=== PATIENT | male | born 1975 | race Caucasian/White ===

== ENCOUNTER 2018-04-13 17:39 | Inpatient (IN) | payer MEDICAID, SELFPAY ==
[2018-04-13] VITALS (47 sets, daily range): BP systolic 117–160; BP diastolic 74–94; PULSE 63–98; RESP 0–39; TEMP 36.8–37.2; O2SAT 89–100
--- NOTE | 2018-04-13 17:52 | DI.CT_ITS ---
SYMPTOM/DIAGNOSIS: ABD PAIN, DYSPNEA, CHEST PAIN, VOMITING CHEST, ABDOMEN AND PELVIC CT: Routine examination following contrast was performed. ABDOMEN AND PELVIS: There are no priors. The liver is normal in size. There are tiny hypodense lesions seen within the liver. They are too small for further characterization but likely reflect small cysts. No suspicious hepatic masses are seen. The portal, superior mesenteric and splenic veins are patent. The gallbladder is negative. No biliary ductal dilatation is seen. The pancreas, spleen and adrenal glands are unremarkable. The kidneys show normal and symmetric enhancement. There are tiny hypodensities seen in the kidneys bilaterally. They are too small for further characterization but likely reflect small cysts. No evidence of obstruction is seen. The urinary bladder is intact. The reproductive organs are unremarkable. The bowel shows no evidence of obstruction or inflammation. There is a normal appendix present. The abdominal aorta is of normal caliber. No significant abdominal or pelvic adenopathy, ascites, or pneumoperitoneum is present. No acute osseous abnormality is identified. IMPRESSION: No evidence of an acute abdomen. CHEST CT: The thoracic aorta is of normal caliber. No aneurysmal dilatation is seen. Heart size is within normal limits. No significant pericardial effusion is seen. Mildly enlarged lymph nodes are seen in the mediastinum but no significant thoracic adenopathy is appreciated. No pleural effusion or pneumothorax is identified. There is soft tissue seen in the anterior mediastinum likely reflect residual thymic tissue. The lungs show no focal consolidating infiltrates. Tracheobronchial tree is unremarkable. Dependent atelectatic changes are seen in the lungs. No acute osseous abnormality is identified. IMPRESSION: No evidence of an acute pulmonary process.
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
[2018-04-13] MEDS: Normal Saline 1,000 ML 1000 ML IV (17:56)
[2018-04-13] MEDS: Ondansetron O.D.T. 4 MG TABEF PO (18:00)
[2018-04-13] MEDS: Ketorolac 30 MG/ML VIAL IVP (18:01)
[2018-04-13 18:13] LABS: Abs Immature Grans 0.01 k/cumm (0.0-0.09); Absolute Basophil Count 0.02 k/cumm (0.0-0.2); Absolute Lymphocyte Count 0.57 k/cumm (1.2-3.4); Absolute Monocyte Count 0.66 k/cumm (0.11-0.7); Absolute Neutrophil Count 4.59 k/cumm (1.2-6.7); Basophils % 0.3; HCT 43.6 % (40.0-50.0); HGB 15.6 g/dL (13.5-17.5); Immature Grans % 0.2; Lymphocytes % 9.7; Mean Corp. HGB Concentration 35.8 g/dL (32.0-36.0); Mean Corpuscular Hemoglobin 32.9 pg (27.0-33.0); Mean Platelet Volume 10.5 fL (8.0-11.0); Monocytes % 11.3; Neutrophils % 78.5; Platelet Count 164 x1000/uL (130-400); RBC 4.74 m/cumm (4.50-6.00); RBC Distribution Width 12.4 % (11.8-14.1); White Blood Cell Count 5.85 k/cumm (4.4-10.8)
[2018-04-13 18:16] LABS: Lactate 2.5 mmol/L (0.6-1.4)
[2018-04-13 18:31] LABS: ALT 29 U/L (12-78); AST 24 U/L (15-37); Alkaline Phosphatase 77 U/L (46-116); Anion Gap 13.8 mmol/L (3-11); BUN 19 mg/dL (7-18); Bilirubin, Total 0.6 mg/dL (0.2-1.0); CO2 26.2 mmol/L (21.0-32.0); CREATININE 0.93 mg/dL (0.70-1.30); Calcium 9.3 mg/dL (8.5-10.1); Chloride 99 mmol/L (98-107); Glucose 93 mg/dL (70-100); Magnesium 1.7 mg/dL (1.8-2.4); Potassium 3.6 mmol/L (3.5-5.1); Sodium 139 mmol/L (136-145); Total Protein 7.8 g/dL (6.4-8.2)
[2018-04-13 18:40] LABS: Troponin I < 0.02 ng/mL (0.00-0.06)
[2018-04-13 18:47] LABS: Bilirubin Negative (Negative); Blood Negative (Negative); Clarity Clear; Glucose Negative (Negative); Ketones 40 mg/dL (Negative); Leukocyte Esterase Negative (Negative); Nitrite Negative (Negative); Urobilinogen 0.2 EU/dL (Up TO 0.2)
[2018-04-13 18:52] LABS: Creatine Kinase 75 U/L (39-308); PHOSPHORUS 1.6 mg/dL (2.6-4.7); Uric Acid 7.6 mg/dL (3.5-7.2)
[2018-04-13] MEDS: Omnipaque 350 MG/ML 100 ML BTL IJ (18:54)
[2018-04-13] MEDS: ACETAMINOPHEN 1,000 MG/100 ML BTL 400 MG IVPB (19:01)
[2018-04-13 19:06] LABS: PTT Activated 26.5 sec (21.0-31.4); Prothrombin Time 9.9 sec (9.3-11.0)
[2018-04-13] MEDS: Lactated Ringers 1,000 ML 1000 ML IV (19:40)
--- NOTE | 2018-04-13 19:42 | DI.VRAD_ITS ---
EXAM: CT Chest With Contrast EXAM DATE/TIME: 04/13/2018 5:55 PM CLINICAL HISTORY: 42 years old, male; Signs and symptoms; Other: Chest pain; Dyspnea; Other: Abdonimal pain TECHNIQUE: Axial computed tomography images of the chest with intravenous contrast. All CT scans at this facility use at least one of these dose optimization techniques: automated exposure control; mA and/or kV adjustment per patient size (includes targeted exams where dose is matched to clinical indication); or iterative reconstruction. Coronal and sagittal reformatted images were created and reviewed. CONTRAST: 100 ml of omnipaque 350 administered intravenously. COMPARISON: No relevant prior studies available. FINDINGS: Thyroid: Thyroid gland partially excluded from view but unremarkable through its visualized portion. Lungs: No pulmonary consolidation. Pleural space: No pleural effusion. No pneumothorax. Heart: Normal sized heart. Mediastinum: Small amount of residual thymic tissue in the anterior mediastinum. Pulmonary arteries: Exam not tailored to evaluate the pulmonary arterial vasculature. Within the limits of the exam, no large central pulmonary embolism demonstrated in the pulmonary trunk or main pulmonary arteries. Aorta: No thoracic aortic aneurysm or dissection. Lymph nodes: Scattered shotty mediastinal lymph nodes, nonspecific. Bones/joints: No acute fracture seen among the bones of the chest. Soft tissues: No soft tissue mass or fluid collection seen in the chest wall. IMPRESSION: No active disease is seen in the chest. EXAM: CT Abdomen and Pelvis With Contrast EXAM DATE/TIME: 04/13/2018 5:55 PM CLINICAL HISTORY: 42 years old, male; Signs and symptoms; Other: Chest pain; Dyspnea; Other: Abdonimal pain TECHNIQUE: Axial computed tomography images of the abdomen and pelvis with intravenous contrast. All CT scans at this facility use at least one of these dose optimization techniques: automated exposure control; mA and/or kV adjustment per patient size (includes targeted exams where dose is matched to clinical indication); or iterative reconstruction. Coronal and sagittal reformatted images were created and reviewed. CONTRAST: 100 ml of omnipaque 350 administered intravenously. COMPARISON: No relevant prior studies available. FINDINGS: Lower thorax: As above. ABDOMEN: Liver: Small indeterminate hypoattenuating hepatic lesions, incompletely characterized but most likely small cysts and/or hemangiomas. Gallbladder and bile ducts: Gallbladder moderately distended. No calcified gallstones. No biliary dilatation. Pancreas: Normal appearing pancreas. Spleen: Normal appearing spleen. Adrenals: Normal appearing adrenal glands. Kidneys and ureters: Small indeterminate hypoattenuating renal lesions, incompletely characterized but statistically most likely small cysts. Otherwise normal appearing kidneys. No hydronephrosis. No obstructing ureteral stones. Stomach and bowel: No oral contrast. Stomach partially decompressed. No small bowel dilatation to suggest obstruction. Normal-appearing colon. No evidence of diverticulitis or colitis. Appendix: Normal appendix. PELVIS: Bladder: Normal appearing urinary bladder. Reproductive: Normal-appearing prostate gland and seminal vesicles. ABDOMEN and PELVIS: Intraperitoneal space: No gross ascites or free air. Bones/joints: No acute fracture seen among the bones of the abdomen or pelvis. Soft tissues: Small fat-containing right inguinal region hernia. Small fat containing umbilical hernia. Vasculature: Normal caliber abdominal aorta. Lymph nodes: Shotty retroperitoneal lymph nodes, nonspecific. IMPRESSION: The cause of abdominal pain is not identified. Dictated and Authenticated by: Rodrigo Daley MD. Ordering:BINTA Dixon MD
[2018-04-13 21:22] LABS: Anion Gap 10.3 mmol/L (3-11); BUN 18 mg/dL (7-18); CO2 27.7 mmol/L (21.0-32.0); CREATININE 0.88 mg/dL (0.70-1.30); Calcium 8.4 mg/dL (8.5-10.1); Chloride 102 mmol/L (98-107); Glucose 85 mg/dL (70-100); Potassium 3.2 mmol/L (3.5-5.1); Sodium 140 mmol/L (136-145)
[2018-04-13] MEDS: HYDROmorphone 2 MG/ML VIAL IVP (22:05)
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
--- NOTE | 2018-04-13 22:10 | NUR.NOTE ---
surgeon evaulated patient, patient medicated per MD order Nursing Note:
--- NOTE | 2018-04-13 22:23 | NUR.NOTE ---
report given to Radha. Nursing Note:
--- NOTE | 2018-04-13 22:40 | NUR.NOTE ---
Nursing Note: Patient arrived to unit in stable condition, he is awake, alert and oriented x3, reporting mild lower abdominal pain which was treated in the ER at 2200 (see MAR). Otherwise, patient is comfortable, no needs voiced at this time. Guard at the bedside.
[2018-04-13] MEDS: Normal Saline 1,000 ML 75 ML IV (23:28)
--- NOTE | 2018-04-14 00:16 | NUR.NOTE ---
Nursing Note: Patient concerned he has not received his regular home meds this evening, confirmed with CC that patients home meds were verified in ER. CC will discuss with attending physician.
[2018-04-14] MEDS: HYDROmorphone 2 MG/ML VIAL IVP ×3 (04:18→19:01)
[2018-04-14 06:53] LABS: Lactate-non-spesis 0.7 mmol/l (0.6-1.4)
[2018-04-14 07:03] LABS: Absolute Basophil Count 0.01 k/cumm (0.0-0.2); Absolute Eosinophil Count 0.02 k/cumm (0.0-0.7); Absolute Lymphocyte Count 0.89 k/cumm (1.2-3.4); Absolute Monocyte Count 0.75 k/cumm (0.11-0.7); Absolute Neutrophil Count 2.64 k/cumm (1.2-6.7); Basophils % 0.2; Eosinophils % 0.5; Lymphocytes % 20.6; Mean Corpuscular Hemoglobin 32.7 pg (27.0-33.0); Mean Corpuscular Volume 93.5 fL (80-95); Mean Platelet Volume 10.6 fL (8.0-11.0); Monocytes % 17.4; Neutrophils % 61.3; Platelet Count 138 x1000/uL (130-400); RBC 4.28 m/cumm (4.50-6.00); RBC Distribution Width 12.3 % (11.8-14.1); White Blood Cell Count 4.31 k/cumm (4.4-10.8)
[2018-04-14 07:06] LABS: Anion Gap 9.8 mmol/L (3-11); BUN 17 mg/dL (7-18); CO2 28.2 mmol/L (21.0-32.0); Calcium 8.4 mg/dL (8.5-10.1); Chloride 104 mmol/L (98-107); Glucose 76 mg/dL (70-100); Potassium 3.3 mmol/L (3.5-5.1); Sodium 142 mmol/L (136-145)
[2018-04-14 07:35] VITALS: BP 141/79; PULSE 82; RESP 16; TEMP 37; O2SAT 97
[2018-04-14 08:25] LABS: C-Reactive Protein 3.58 mg/dL (0.0-0.3)
[2018-04-14 09:04] LABS: ESR 13 MM/HR (0-15)
[2018-04-14 11:45] VITALS: BP 129/76; PULSE 78; RESP 18; TEMP 36.8; O2SAT 98
--- NOTE | 2018-04-14 12:16 | PHARADMIT ---
Admission Pharmacy Clinical Review Smal Bowel thickening, acute abdominal pain Code Status Full Code Current Weight Wgt-88.5 kg Renally Cleared and Narrow Therapeutic Index Meds CrCl~ 137 mL/min Meds-OK QTc Value / Action Taken QTc-458 na BP Control, Fever BP- 141/79 Tmax-37C Electrolytes reviewed Na- 142 K+3.3 Mag-1.7 Phos-1.6 DVT Prophylaxis none ? surgery Opiate Usage / Scheduled Bowel Regimen Ordered Yes, No NPO Plt/SCr for Heparin / Enoxaparin Plts-138 SCr- 0.80 INR for Warfarin inr-1.0 H/H stable, WBC/Bands H&H- 14.0/40.0 WBC- 4.31 Antibiotic appropriateness none Cultures and Sensitivities none Surgical ABX d/c within 24 hr na DM control / Insulin Dosing BG-76 Heart Failure (Check EF%) (JEFF's, B-Block, Diuretics) None IV to PO Switch No Home Meds Reviewed Yes Home Meds Not Ordered Subutrex,HCTZ, Ibuprofen, Lisinopril, Trazodone, Eucerin Comments RCRP-C-3.58
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
[2018-04-14] MEDS: Normal Saline 1,000 ML 75 ML IV (12:56)
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
[2018-04-14] MEDS: ACETAMINOPHEN 1,000 MG/100 ML BTL 400 MG IVPB (13:47)
[2018-04-14 16:19] VITALS: BP 132/76; PULSE 70; RESP 18; TEMP 36.5; O2SAT 97
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
[2018-04-14] MEDS: Normal Saline 1,000 ML 125 ML IV (22:11)
[2018-04-14 23:47] VITALS: BP 134/86; PULSE 72; RESP 17; TEMP 37.6; O2SAT 96
[2018-04-15] MEDS: HYDROmorphone 2 MG/ML VIAL IVP ×2 (00:09→06:39)
[2018-04-15] MEDS: Normal Saline Flush 10 ML SYR (00:09)
[2018-04-15] MEDS: Normal Saline 1,000 ML 125 ML IV (06:38)
[2018-04-15] MEDS: Breeza Beverage 473 ML BTL PO (07:17)
[2018-04-15] MEDS: Omnipaque 350 MG/ML 100 ML BTL IJ (07:18)
[2018-04-15] MEDS: Omnipaque 350 MG/ML 50 ML BTL IJ (07:18)
--- NOTE | 2018-04-15 07:18 | DI.CT_ITS ---
SYMPTOM/DIAGNOSIS: RLQ PAIN, ONGOING ABDOMEN AND PELVIC CT: CT scan of the abdomen and pelvis was performed following the uneventful administration of intravenous contrast material. Comparison is made with 04/13/18. Dependent atelectatic changes are seen in the lung bases. The liver is normal in size. No suspicious hepatic masses are seen. There is focal fatty infiltration adjacent to the falciform ligament. There are again seen a few tiny hypodensities within the liver. They are too small for further characterization but likely reflect cysts. The hepatic, portal and superior mesenteric and splenic veins are patent. The gallbladder is negative. No biliary ductal dilatation is seen. The spleen, pancreas and adrenal glands are unremarkable. The kidneys show normal and symmetric enhancement. There is a right renal cyst. There are also bilateral tiny hypodensities within the kidneys. They are too small for further characterization but likely reflect cysts. The urinary bladder is intact. The reproductive organs are unremarkable. The bowel shows no evidence of obstruction or inflammation. There is a normal appendix present. The aorta is of normal caliber. No aneurysmal dilatation is seen. No significant abdominal or pelvic adenopathy or pneumoperitoneum is seen. There is a trace amount of free fluid in the pelvis which is nonspecific. No acute osseous abnormality is identified. IMPRESSION: Nonspecific trace amount of free intraperitoneal fluid.
[2018-04-15 07:26] LABS: Absolute Basophil Count 0.01 k/cumm (0.0-0.2); Absolute Eosinophil Count 0.02 k/cumm (0.0-0.7); Absolute Lymphocyte Count 1.02 k/cumm (1.2-3.4); Absolute Monocyte Count 0.56 k/cumm (0.11-0.7); Absolute Neutrophil Count 2.52 k/cumm (1.2-6.7); Basophils % 0.2; Eosinophils % 0.5; HCT 40.6 % (40.0-50.0); HGB 14.4 g/dL (13.5-17.5); Lymphocytes % 24.7; Mean Corp. HGB Concentration 35.5 g/dL (32.0-36.0); Mean Corpuscular Hemoglobin 32.4 pg (27.0-33.0); Mean Corpuscular Volume 91.4 fL (80-95); Mean Platelet Volume 10.5 fL (8.0-11.0); Monocytes % 13.6; Platelet Count 144 x1000/uL (130-400); RBC 4.44 m/cumm (4.50-6.00); White Blood Cell Count 4.13 k/cumm (4.4-10.8)
[2018-04-15 07:36] VITALS: BP 150/97; PULSE 76; RESP 19; TEMP 37; O2SAT 95
[2018-04-15 08:02] LABS: ESR 18 MM/HR (0-15)
--- NOTE | 2018-04-15 08:08 | DI.VRAD_ITS ---
EXAM: CT Abdomen and Pelvis With Contrast EXAM DATE/TIME: 04/15/2018 12:01 AM CLINICAL HISTORY: 42 years old, male; Signs and symptoms; Other: Rlq pain, ongoing, no source TECHNIQUE: Axial computed tomography images of the abdomen and pelvis with intravenous contrast. All CT scans at this facility use at least one of these dose optimization techniques: automated exposure control; mA and/or kV adjustment per patient size (includes targeted exams where dose is matched to clinical indication); or iterative reconstruction. Coronal and sagittal reformatted images were created and reviewed. CONTRAST: 100 ml of Omnipaque 350 administered intravenously. COMPARISON: CT CHEST/ABD/PEL W 04/13/2018 6:45 PM FINDINGS: Lower thorax: Minimal dependent changes within the lung bases. ABDOMEN: Liver: Tiny indeterminate low-density hepatic lesions, likely cysts. Focal fatty infiltration within the left hepatic lobe adjacent to the fissure for the ligamentum teres. Gallbladder and bile ducts: Unremarkable. No calcified stones. No ductal dilation. Pancreas: Unremarkable. No ductal dilation. Spleen: Unremarkable. No splenomegaly. Adrenals: Normal. No mass. Kidneys and ureters: Indeterminate low-density lesions scattered throughout both kidneys, likely cysts. No renal stone or hydronephrosis. Stomach and bowel: Unremarkable. No obstruction. No mucosal thickening. Appendix: No evidence of appendicitis. PELVIS: Bladder: Unremarkable as visualized. Reproductive: Unremarkable as visualized. ABDOMEN and PELVIS: Intraperitoneal space: Trace intraperitoneal fluid within the lower pelvis (axial images 64 through 70). Bones/joints: No acute fracture. Soft tissues: Tiny umbilical hernia containing fat. Vasculature: Unremarkable. No abdominal aortic aneurysm. Lymph nodes: Tiny nonspecific retroperitoneal lymph nodes. IMPRESSION: 1. Trace intraperitoneal fluid in the lower pelvis, nonspecific. 2. Probable tiny hepatic and renal cysts. Dictated and Authenticated by: Marco Rodriguez MD. Ordering:AMANDA Ospina MD
[2018-04-15] MEDS: Lisinopril 20 MG TAB 30 MG PO (12:02)
[2018-04-15] MEDS: Ibuprofen 600 MG TAB PO (12:04)
[2018-04-15] MEDS: Magnesium Citrate 300 ML BTL PO (12:04)
[2018-04-15] MEDS: Hydrochlorothiazide 25 MG TAB 50 MG PO (12:04)
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
[2018-04-15] MEDS: Milk of Magnesia 30 ML CUP PO (15:00)
[2018-04-15] MEDS: ACETAMINOPHEN 1,000 MG/100 ML BTL 400 MG IVPB (15:06)
--- NOTE | 2018-04-15 15:23 | PDOC.CMPRO ---
Care Management Progress Note S/O: Sitting up in bed watching TV. Had just received Tylenol for a headache. Stated other thanthat he is feeling much better and was able to tolerate a regular meal today. A: 42 y.o. male admitted for acute abdominal pain. Remains acute today. [facility] P:When medically cleared for discharge will return to the correctional. Transport will be arranged by corrections in one of their vehicles.
[2018-04-15 15:38] VITALS: BP 142/80; PULSE 70; RESP 18; TEMP 36; O2SAT 97
--- NOTE | 2018-04-15 15:51 | CMPROGNOTE_ITS ---
Care Management Progress Note S/O: Sitting up in bed watching TV. Had just received Tylenol for a headache. Stated other thanthat he is feeling much better and was able to tolerate a regular meal today. A: 42 y.o. male admitted for acute abdominal pain. Remains acute today. [facility] P:When medically cleared for discharge will return to the correctional. Transport will be arranged by corrections in one of their vehicles.
[2018-04-15 20:25] VITALS: BP 153/71; PULSE 70; RESP 18; TEMP 36.5; O2SAT 99
[2018-04-15] MEDS: traZODone 50 MG TAB 150 MG PO (21:57)
[2018-04-16 00:20] VITALS: BP 133/87; PULSE 75; RESP 16; TEMP 36; O2SAT 95
[2018-04-16] MEDS: Hydrochlorothiazide 25 MG TAB 50 MG PO (07:51)
[2018-04-16] MEDS: Lisinopril 20 MG TAB 30 MG PO (07:51)
[2018-04-16 08:10] VITALS: BP 133/91; PULSE 67; RESP 18; TEMP 36.1; O2SAT 96
[2018-04-16] MEDS: Milk of Magnesia 30 ML CUP PO (08:58)
--- NOTE | 2018-04-16 11:31 | W.PM.PROGNOT ---
Date of Service Date of service: 04/16/18 Time of Service: 11:32 Assessment and Plan (1) Constipation due to pain medication: Current visit: Yes Status: Acute -no BM yet. pt feels better- min pain. + headache today. tolerating po's. -will try Golyte (PEG soln) -fioricet for headache -d/c after BM (2) Headache: Current visit: Yes Status: Acute Subjective Patient reports: pain is less, voiding w/o difficulty, no bowel movement, nausea, vomiting and afebrile Interval history since last seen: no bm yet [id number] mom and mag citrate . pt had some n/v last pm. + flatus and some liquid stool. no bleeding. no n/v today adn jamila po's. feels like he needs to have bm. Exam Const General: healthy appearing and comfortable Nutritional Appearance: average body habitus Orientation: alert, awake and oriented x3 GI Inspection: normal to inspection, distended, scar and other Palpation: soft Auscultation: normal bowel sounds Objective Objective Clinical Data: Vital Signs Temperature 36.1 C L 04/16/18 08:10 Temperature Source Tympanic 04/16/18 08:10 Pulse 67 04/16/18 08:10 Pulse Rhythm Regular 04/16/18 07:43 Pulse 69 04/13/18 21:50 Respiratory Rate 18 04/16/18 08:10 Respiratory Effort Non-Labored 04/16/18 07:43 Respiratory Depth Normal 04/16/18 07:43 Respiratory Pattern Normal 04/16/18 07:43 Blood Pressure 133/91 H 04/16/18 08:10 Blood Pressure Mean 92 04/13/18 21:01 Pulse Oximetry 96 04/16/18 08:10 Oxygen Delivery Method Room Air 04/16/18 08:10 Oxygen Flow Rate 0 04/16/18 08:10 Pain Level 0 04/16/18 00:20 Intake & Output 04/15/18 04/15/18 04/16/18 11:59 23:59 11:59 Intake Total 1045.833 / 5.833 1079 / 5.833 350 / 350 Balance 1045.833 / 2124.833 1080 / 2124.833 350 / 350 Intake: IV 1045.833 / 1165.833 120 / 1165.833 Oral 960 / 960 350 / 350 Other: Urine Appearance Clear Comment Pt voiding ad rocael in toilet. No hat. Pt denies sx. Voiding Methods Toilet Toilet Laboratory Results WBC 4.13 k/cumm (4.4-10.8) L 04/15/18 06:58 RBC 4.44 m/cumm (4.50-6.00) L 04/15/18 06:58 Hgb 14.4 g/dL (13.5-17.5) 04/15/18 06:58 Hct 40.6 % (40.0-50.0) 04/15/18 06:58 MCV 91.4 fL (80-95) 04/15/18 06:58 MCH 32.4 pg (27.0-33.0) 04/15/18 06:58 MCHC 35.5 g/dL (32.0-36.0) 04/15/18 06:58 RDW 12.0 % (11.8-14.1) 04/15/18 06:58 Plt Count 144 x1000/uL (130-400) 04/15/18 06:58 MPV 10.5 fL (8.0-11.0) 04/15/18 06:58 Immature Gran % 0.0 04/15/18 06:58 Neutrophils % 61.0 04/15/18 06:58 Lymphocytes % 24.7 04/15/18 06:58 Monocytes % 13.6 04/15/18 06:58 Eosinophils % 0.5 04/15/18 06:58 Basophils % 0.2 04/15/18 06:58 Absolute Neutrophils 2.52 k/cumm (1.2-6.7) 04/15/18 06:58 Absolute Lymphocytes 1.02 k/cumm (1.2-3.4) L 04/15/18 06:58 Absolute Monocytes 0.56 k/cumm (0.11-0.7) 04/15/18 06:58 Absolute Eosinophils 0.02 k/cumm (0.0-0.7) 04/15/18 06:58 Absolute Basophils 0.01 k/cumm (0.0-0.2) 04/15/18 06:58 ESR 18 MM/HR (0-15) H 04/15/18 06:58 PT 9.9 sec (9.3-11.0) 04/13/18 17:54 INR 1.0 (0.9-1.1) 04/13/18 17:54 APTT 26.5 sec (21.0-31.4) 04/13/18 17:54 Sodium 142 mmol/L (136-145) 04/14/18 06:31 Potassium 3.3 mmol/L (3.5-5.1) L 04/14/18 06:31 Chloride 104 mmol/L (98-107) 04/14/18 06:31 Carbon Dioxide 28.2 mmol/L (21.0-32.0) 04/14/18 06:31 Anion Gap 9.8 mmol/L (3-11) 04/14/18 06:31 BUN 17 mg/dL (7-18) 04/14/18 06:31 Creatinine 0.80 mg/dL (0.70-1.30) 04/14/18 06:31 Estimated GFR/1.73 m2 >= 60.00 (mL/min/1.73m2) 04/14/18 06:31 Glucose 76 mg/dL (70-100) 04/14/18 06:31 Lactate 0.7 mmol/l (0.6-1.4) 04/14/18 06:31 Uric Acid 7.6 mg/dL (3.5-7.2) H 04/13/18 17:54 Calcium 8.4 mg/dL (8.5-10.1) L 04/14/18 06:31 Phosphorus 1.6 mg/dL (2.6-4.7) L 04/13/18 17:54 Magnesium 1.7 mg/dL (1.8-2.4) L 04/13/18 17:45 Total Bilirubin 0.6 mg/dL (0.2-1.0) 04/13/18 17:45 AST 24 U/L (15-37) 04/13/18 17:45 ALT 29 U/L (12-78) 04/13/18 17:45 Alkaline Phosphatase 77 U/L (46-116) 04/13/18 17:45 Creatine Kinase 75 U/L (39-308) 04/13/18 17:54 Troponin I < 0.02 ng/mL (0.00-0.06) 04/13/18 17:45 C-Reactive Protein 2.10 mg/dL (0.0-0.3) H 04/15/18 06:58 Total Protein 7.8 g/dL (6.4-8.2) 04/13/18 17:45 Albumin 4.0 g/dL (3.4-5.0) 04/13/18 17:45 Urine Color Yellow (Yellow) 04/13/18 18:30 Urine Clarity Clear 04/13/18 18:30 Urine pH 7.0 (5-8) 04/13/18 18:30 Ur Specific [place] 1.020 (1.005-1.025) 04/13/18 18:30 Urine Protein Negative mg/dL (Negative) 04/13/18 18:30 Urine Ketones 40 mg/dL (Negative) H 04/13/18 18:30 Urine Blood Negative (Negative) 04/13/18 18:30 Urine Nitrite Negative (Negative) 04/13/18 18:30 Urine Bilirubin Negative (Negative) 04/13/18 18:30 Urine Urobilinogen 0.2 EU/dL (Up TO 0.2) 04/13/18 18:30 Ur Leukocyte Esterase Negative (Negative) 04/13/18 18:30 Urine Glucose Negative mg/dL (Negative) 04/13/18 18:30 Objective Narrative Objective Narrative: nonew labs or xrays
[2018-04-16] MEDS: ACETAMINOPHEN 1,000 MG/100 ML BTL 400 MG IVPB (12:37)
--- NOTE | 2018-04-16 15:35 | PDOC.CMPRO ---
Care Management Progress Note S/O: Sitting up in bed watching TV. Had just been up and showered. No nausea or vomiting today. A: 42 y.o. male admitted for acute abdominal pain. Remains acute today. [facility] P:When medically cleared for discharge will return to the correctional. Transport will be arranged by corrections in one of their vehicles.
[2018-04-16 15:49] VITALS: BP 137/86; PULSE 77; RESP 18; TEMP 36.3; O2SAT 97
[2018-04-16] MEDS: traZODone 50 MG TAB 150 MG PO (21:15)
[2018-04-17 03:59] VITALS: BP 146/89; PULSE 69; RESP 16; TEMP 36.3; O2SAT 95
[2018-04-17 07:15] VITALS: BP 129/90; PULSE 78; RESP 18; TEMP 35.9; O2SAT 97
--- NOTE | 2018-04-17 07:47 | PGE_ITS ---
Date of Service Date of service: 04/17/18 Time of Service: 07:44 Assessment and Plan (1) Constipation due to pain medication: Current visit: Yes Status: Acute A\\ Constipation P\\ D/C back to halfway today with daily miralax for constipation Subjective Interval history since last seen: Patient had multiple BM's overnight. No N/V. Tolerating a regular diet. Exam Resp Effort & Inspection: normal respiratory effort Auscultation: clear to auscultation bilaterally Cardio Rate: regular rate Rhythm: regular rhythm Heart Sounds: no gallops, no murmurs and no rubs GI Palpation: soft and nontender Auscultation: normal bowel sounds Objective Objective Clinical Data: Vital Signs Temperature 97.3 F L 04/17/18 03:59 Temperature Source Tympanic 04/17/18 03:59 Pulse 69 04/17/18 03:59 Pulse Rhythm Regular 04/16/18 21:54 Pulse 69 04/13/18 21:50 Respiratory Rate 16 04/17/18 03:59 Respiratory Effort Non-Labored 04/16/18 21:54 Respiratory Depth Normal 04/16/18 21:54 Respiratory Pattern Normal 04/16/18 21:54 Blood Pressure 146/89 H 04/17/18 03:59 Blood Pressure Mean 92 04/13/18 21:01 Pulse Oximetry 95 04/17/18 03:59 Oxygen Delivery Method Room Air 04/17/18 03:59 Oxygen Flow Rate 0 04/17/18 03:59 Pain Level 7 04/16/18 12:37 Intake & Output 04/16/18 04/16/18 04/17/18 11:59 23:59 11:59 Intake Total 590 / 1430 840 / 1430 Balance 590 / 1430 840 / 1430 Intake: IV 120 / 120 Oral 590 / 1310 720 / 1310 Other: Comment Pt voiding ad rocael in toilet. No hat. Pt denies sx. Stool Size Large Stool Characteristics Liquid Voiding Methods Toilet Laboratory Results WBC 4.13 k/cumm (4.4-10.8) L 04/15/18 06:58 RBC 4.44 m/cumm (4.50-6.00) L 04/15/18 06:58 Hgb 14.4 g/dL (13.5-17.5) 04/15/18 06:58 Hct 40.6 % (40.0-50.0) 04/15/18 06:58 MCV 91.4 fL (80-95) 04/15/18 06:58 MCH 32.4 pg (27.0-33.0) 04/15/18 06:58 MCHC 35.5 g/dL (32.0-36.0) 04/15/18 06:58 RDW 12.0 % (11.8-14.1) 04/15/18 06:58 Plt Count 144 x1000/uL (130-400) 04/15/18 06:58 MPV 10.5 fL (8.0-11.0) 04/15/18 06:58 Immature Gran % 0.0 04/15/18 06:58 Neutrophils % 61.0 04/15/18 06:58 Lymphocytes % 24.7 04/15/18 06:58 Monocytes % 13.6 04/15/18 06:58 Eosinophils % 0.5 04/15/18 06:58 Basophils % 0.2 04/15/18 06:58 Absolute Neutrophils 2.52 k/cumm (1.2-6.7) 04/15/18 06:58 Absolute Lymphocytes 1.02 k/cumm (1.2-3.4) L 04/15/18 06:58 Absolute Monocytes 0.56 k/cumm (0.11-0.7) 04/15/18 06:58 Absolute Eosinophils 0.02 k/cumm (0.0-0.7) 04/15/18 06:58 Absolute Basophils 0.01 k/cumm (0.0-0.2) 04/15/18 06:58 ESR 18 MM/HR (0-15) H 04/15/18 06:58 PT 9.9 sec (9.3-11.0) 04/13/18 17:54 INR 1.0 (0.9-1.1) 04/13/18 17:54 APTT 26.5 sec (21.0-31.4) 04/13/18 17:54 Sodium 142 mmol/L (136-145) 04/14/18 06:31 Potassium 3.3 mmol/L (3.5-5.1) L 04/14/18 06:31 Chloride 104 mmol/L (98-107) 04/14/18 06:31 Carbon Dioxide 28.2 mmol/L (21.0-32.0) 04/14/18 06:31 Anion Gap 9.8 mmol/L (3-11) 04/14/18 06:31 BUN 17 mg/dL (7-18) 04/14/18 06:31 Creatinine 0.80 mg/dL (0.70-1.30) 04/14/18 06:31 Estimated GFR/1.73 m2 >= 60.00 (mL/min/1.73m2) 04/14/18 06:31 Glucose 76 mg/dL (70-100) 04/14/18 06:31 Lactate 0.7 mmol/l (0.6-1.4) 04/14/18 06:31 Uric Acid 7.6 mg/dL (3.5-7.2) H 04/13/18 17:54 Calcium 8.4 mg/dL (8.5-10.1) L 04/14/18 06:31 Phosphorus 1.6 mg/dL (2.6-4.7) L 04/13/18 17:54 Magnesium 1.7 mg/dL (1.8-2.4) L 04/13/18 17:45 Total Bilirubin 0.6 mg/dL (0.2-1.0) 04/13/18 17:45 AST 24 U/L (15-37) 04/13/18 17:45 ALT 29 U/L (12-78) 04/13/18 17:45 Alkaline Phosphatase 77 U/L (46-116) 04/13/18 17:45 Creatine Kinase 75 U/L (39-308) 04/13/18 17:54 Troponin I < 0.02 ng/mL (0.00-0.06) 04/13/18 17:45 C-Reactive Protein 2.10 mg/dL (0.0-0.3) H 04/15/18 06:58 Total Protein 7.8 g/dL (6.4-8.2) 04/13/18 17:45 Albumin 4.0 g/dL (3.4-5.0) 04/13/18 17:45 Urine Color Yellow (Yellow) 04/13/18 18:30 Urine Clarity Clear 04/13/18 18:30 Urine pH 7.0 (5-8) 04/13/18 18:30 Ur Specific [place] 1.020 (1.005-1.025) 04/13/18 18:30 Urine Protein Negative mg/dL (Negative) 04/13/18 18:30 Urine Ketones 40 mg/dL (Negative) H 04/13/18 18:30 Urine Blood Negative (Negative) 04/13/18 18:30 Urine Nitrite Negative (Negative) 04/13/18 18:30 Urine Bilirubin Negative (Negative) 04/13/18 18:30 Urine Urobilinogen 0.2 EU/dL (Up TO 0.2) 04/13/18 18:30 Ur Leukocyte Esterase Negative (Negative) 04/13/18 18:30 Urine Glucose Negative mg/dL (Negative) 04/13/18 18:30
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
[2018-04-17] MEDS: Hydrochlorothiazide 25 MG TAB 50 MG PO (07:58)
[2018-04-17] MEDS: Lisinopril 20 MG TAB 30 MG PO (07:58)
[2018-04-17] MEDS: Normal Saline Flush 10 ML SYR IVP (07:59)
[2018-04-17] MEDS: Ibuprofen 600 MG TAB PO (08:03)
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
--- NOTE | 2018-04-17 09:49 | PDOC.CMDIS ---
- If Service Date Differs Date of service: 04/17/18 Time of Service: 09:49 LACE Index Scoring Tool - Questions: Length of Stay (in days): 4 - 6 Acuity (Admit via E.D.?): Yes E.D. Visits: 1 - Answers: Total Score: 8 Risk of Readmission: Low Risk Care Management Discharge Reason for Hospitalization: Small bowel thickening, Acute abdominal pain Discharge Plan: Jc will return to the correctional facility today. He will F/U with the surgical group upon DC. Correctional facility guards to transport. Patient/Family Education Needs: Review DC instructions, any limitations, and discuss 'Ask Me Three'
== END 2018-04-17 10:11 | disposition home or self-care (01) | DRG 392 ==
LOC: ER 22:24 → MS 22:34
PROVIDERS: Surgery; Admitting Provider Surgery; Emergency Provider Nurse Practitioner Family; Visit Provider Surgery
DX: K59.03 Drug induced constipation (principal); F11.288 Opioid dependence with other opioid-induced disorder; E87.2 Acidosis; T40.2X5A Adverse effect of other opioids, initial encounter; K40.90 Unilateral inguinal hernia, without obstruction or gangrene, not specified as recurrent; R51 Headache
CPT/HCPCS: 36415; 74177; 80048; 80053; 82550; 85652; 93005; 96361; 96374; 96375; 99222; 99231; 99232; 99239; 99285; 71260; 81003; 83605; 83735; 84100; 84484; 84550; 85025; 85610; 85730; 86140; 93010; 99284; J0131; J1885; J3490; Q9967

== ENCOUNTER 2019-05-01 14:33 | Emergency (ER) | payer OTHER, SELFPAY ==
[2019-05-01 14:37] VITALS: BP 142/90; PULSE 64; RESP 16; TEMP 36.6; O2SAT 96
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
[2019-05-01] MEDS: Normal Saline 1,000 ML 1000 ML IV (16:35)
[2019-05-01 16:41] LABS: Abs Immature Grans 0.01 k/cumm (0.0-0.09); Absolute Basophil Count 0.07 k/cumm (0.0-0.2); Absolute Eosinophil Count 0.49 k/cumm (0.0-0.7); Absolute Lymphocyte Count 1.68 k/cumm (1.2-3.4); Absolute Monocyte Count 0.54 k/cumm (0.11-0.7); Absolute Neutrophil Count 2.45 k/cumm (1.2-6.7); Basophils % 1.3; Eosinophils % 9.4; HCT 42.7 % (40.0-50.0); HGB 15.8 g/dL (13.5-17.5); Immature Grans % 0.2 %; Lymphocytes % 32.1; Mean Corpuscular Hemoglobin 33.6 pg (27.0-33.0); Mean Corpuscular Volume 90.9 fL (80-95); Mean Platelet Volume 10.2 fL (8.0-11.0); Monocytes % 10.3; Neutrophils % 46.7; Platelet Count 193 x1000/uL (130-400); RBC Distribution Width 12.2 % (11.8-14.1); White Blood Cell Count 5.24 k/cumm (4.4-10.8)
[2019-05-01] MEDS: Acetaminophen 500 MG TAB 1000 MG PO (16:45)
[2019-05-01] MEDS: Ketorolac 30 MG/ML VIAL IVP (16:45)
[2019-05-01] MEDS: Normal Saline Flush 10 ML SYR IVP (16:46)
[2019-05-01 16:50] LABS: Diff Comment RBC Morph Reviewed; RBC Morphology Normal
[2019-05-01] MEDS: Omnipaque 350 MG/ML 100 ML BTL IJ (16:54)
[2019-05-01] MEDS: Normal Saline - Diluent 50 ML VIAL IV (16:56)
--- NOTE | 2019-05-01 17:00 | DI.CT_ITS ---
EXAM: CT HEAD WO/W FACIAL W CLINICAL HISTORY: concern for infection,and for brain abscess, RT SIDED FOREHEAD CELLULITIS, RT ZULY ED EYE PAIN TECHNIQUE: Imaging Protocol: Axial computed tomography images with coronal and sagittal reformatted images were created and reviewed. CONTRAST MATERIAL: Intravenous: Omnipaque 350 Contrast volume:100 mL contrast route:IV - Oral: No COMPARISON: No exams were available for comparison FINDINGS: CT head without/with contrast: Ventricles and Extra axial spaces: Normal in size and morphology for the patient's age. Hemorrhage: None. Cerebral parenchyma: Normal. Enhancement: No suspicious enhancement. Midline shift: None. Brainstem/Cerebellum: Normal. Calvarium: Normal. Visualized Paranasal sinuses/Mastoids: There is a mucous retention cyst in the right maxillary sinus. Maxillofacial CT with contrast: Orbits: Unremarkable. Bones/joints: Unremarkable. Sinuses: Right maxillary mucous retention cyst. Opacification of a few ethmoid air cells bilaterally . Mild mucosal thickening in the right maxillary sinus. No fluid levels are present. Soft tissues: Mild periorbital soft tissue swelling. No focal fluid collection to suggest an abscess . No soft tissue gas is noted. IMPRESSION: 1. Normal CT scan of the head. 2. Mild periorbital soft tissue stranding but no evidence of abscess. 3. Mild paranasal sinus disease. RADIATION DOSE DELIVERED: DATA REPOSITORY: All CT scans at this facility are submitted to the National Radiology Data Registry (NRDR) Dose Index Registry (DIR) with the [employer] ([employer]). RADIATION OPTIMIZATION: All CT scans at this facility use at least one of these dose optimization te chniques: automated exposure control; mA and/or kV adjustment per patient size (includes targeted exa ms where dose is matched to clinical indication); or iterative reconstruction.
[2019-05-01 17:01] LABS: ALT 48 U/L (16-63); AST 45 U/L (15-37); Albumin 3.7 g/dL (3.4-5.0); Alkaline Phosphatase 86 U/L (46-116); Anion Gap 6.7 mmol/L (3-11); BUN 22 mg/dL (7-18); Bilirubin, Total 0.4 mg/dL (0.2-1.0); CO2 31.3 mmol/L (21.0-32.0); CREATININE 0.87 mg/dL (0.70-1.30); Calcium 8.4 mg/dL (8.5-10.1); Chloride 105 mmol/L (98-107); Glucose 80 mg/dL (74-106); Potassium 3.6 mmol/L (3.5-5.1); Sodium 143 mmol/L (136-145); Total Protein 6.6 g/dL (6.4-8.2)
[2019-05-01 17:15] LABS: ESR 8 mm/hr (0-15)
--- NOTE | 2019-05-01 17:36 | DI.VRAD_ITS ---
PROCEDURE INFORMATION: Exam: CT Maxillofacial With Contrast Exam date and time: 05/01/2019 4:55 PM Age: 43 years old Clinical indication: Other: Concern for infection, and for brain abscess, right sided forehead cellulitis, right sided eye pa TECHNIQUE: Imaging protocol: Computed tomography images of the face with intravenous contrast. Contrast material: OMNIPAQUE 350; Contrast volume: 100 ml; Contrast route: IV; COMPARISON: No relevant prior studies available. FINDINGS: Orbits: Orbits are normal. Globes are unremarkable. Sinuses: Right maxillary sinus mucous retention cyst. Trace opacification of the right ethmoid air cells and right frontal sinus drainage tract. Bones/joints: No CT evidence of osseous infection. No acute fracture. Soft tissues: Right greater than left frontal and right periorbital soft tissue fat stranding and edema. No organized fluid collection or soft tissue gas. IMPRESSION: 1. Right greater than left frontal and right periorbital soft tissue fat stranding and edema without organized fluid collection or evidence of postseptal infection. 2. Mild paranasal sinus disease. PROCEDURE INFORMATION: Exam: CT Head Without And With Contrast Exam date and time: 05/01/2019 4:55 PM Age: 43 years old Clinical indication: Other: Concern for infection, and for brain abscess, right sided forehead cellulitis, right sided eye pa TECHNIQUE: Imaging protocol: Computed tomography of the head without and with intravenous contrast. Radiation optimization: All CT scans at this facility use at least one of these dose optimization techniques: automated exposure control; mA and/or kV adjustment per patient size (includes targeted exams where dose is matched to clinical indication); or iterative reconstruction. Contrast material: OMNIPAQUE 350; Contrast volume: 100 ml; Contrast route: IV; COMPARISON: No relevant prior studies available. FINDINGS: Brain: No hemorrhage. No large vascular territory infarct. No mass effect. No organized fluid collection. No suspicious enhancement or mass. Ventricles: Normal. No ventriculomegaly. Bones/joints: Unremarkable. No acute fracture. Sinuses: Visualized sinuses are unremarkable. No fluid levels. Mastoid air cells: Visualized mastoid air cells are well aerated. Soft tissues: Unremarkable. IMPRESSION: No acute intracranial abnormality. No CT evidence of intracranial infection as queried. Dictated and Authenticated by: Raul Dee MD. Ordering:MINERVA Laureano MD
[2019-05-01] MEDS: CLINDAMYCIN 900 MG/50 ML BAG 50 MG IVPB (18:18)
[2019-05-01 19:14] VITALS: BP 161/119; PULSE 62; RESP 16; TEMP 36.5; O2SAT 95
== END 2019-05-01 19:20 | disposition home or self-care (01) ==
PROVIDERS: Emergency Provider Physician Assistant; PCP Physician Assistant
DX: H05.011 Cellulitis of right orbit (principal); Z88.2 Allergy status to sulfonamides
CPT/HCPCS: 36415; 80053; 85652; 87040; 96361; 96365; 96375; 99285; 70470; 70487; 83605; 85025; 86140; 99284; J1885; J3490